=== PATIENT | male | born 1975 | race Caucasian/White ===

== ENCOUNTER 2018-07-28 06:13 | Emergency (ER) | payer MEDICAID ==
[~2018-07-28] VITALS: Ht 177.8 cm; Wt 85.0 kg
[2018-07-28 06:27] VITALS: BP 158/94
--- NOTE | 2018-07-28 06:36 | NUR ---
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
--- NOTE | 2018-07-28 06:47 | NUR ---
pts removed from legal 1999 by [facility] and discharged home with all his belongings at this time
== END 2018-07-28 06:49 | disposition home or self-care (01) ==
LOC: ED 06:30
DX: S00.83XA Contusion of other part of head, initial encounter (principal); I10 Essential (primary) hypertension; I25.2 Old myocardial infarction; X58.XXXA Exposure to other specified factors, initial encounter; Y93.89 Activity, other specified; Y92.89 Other specified places as the place of occurrence of the external cause; Y99.8 Other external cause status
CPT/HCPCS: 99283